=== PATIENT | male | born 1950 | race Caucasian/White ===

== ENCOUNTER 2019-09-14 17:58 | Emergency (ER) | payer MEDICARE, OTHER ==
[~2019-09-14] VITALS: Ht 172.7 cm; Wt 106.8 kg
[2019-09-14 18:58] LABS: BASOPHILS % (AUTO) 0.9 % (0.0-2.0); EOSINOPHILS % (AUTO) 1.3 % (1.0-6.0); HEMATOCRIT 43.1 % (41-53); HEMOGLOBIN 14.3 g/dL (13.5-17.5); LYMPHOCYTES % (AUTO) 20.6 % (22.0-44.0); MEAN CORPUSCULAR HEMOGLOBIN 32.3 pg (26.0-34.0); MEAN CORPUSCULAR HGB CONC 33.2 G/dL (31.0-37.0); MEAN CORPUSCULAR VOLUME 97 fL (80-100); MONOCYTES # (AUTO) 0.7 K/uL (0.1-1.0); MONOCYTES % (AUTO) 13.2 % (2.0-9.0); NEUTROPHILS # (AUTO) 3.2 K/uL (1.8-7.7); PLATELET COUNT (AUTO) 184 K/uL (150-450); RED BLOOD CELL COUNT(AUTO) 4.43 MIL/uL (4.50-5.90)
[2019-09-14 19:11] LABS: ANION GAP 11 mmol/L (8-16); CALCIUM, TOTAL 8.1 mg/dL (8.8-10.5); CARBON DIOXIDE 25 mmol/L (22-29); CHLORIDE 105 mmol/L (98-107); CREATININE 0.91 mg/dL (0.60-1.30); GLOMERULAR FILTR. RATE CALC > 60 mL/min (>60); GLUCOSE,RANDOM 103 mg/dL (70-110); POTASSIUM 4.1 mmol/L (3.5-5.1); SODIUM SERUM 141 mmol/L (136-145); UREA NITROGEN, BLOOD 11 mg/dL (7-18)
[2019-09-14 19:34] LABS: ALANINE AMINOTRANSFERASE 14 U/L (12-78); ALBUMIN 3.2 g/dL (3.4-5.0); ALKALINE PHOSPHATASE 104 U/L (46-116); ASPARTATE AMINOTRANSFERASE 21 U/L (15-37); BILIRUBIN,TOTAL 0.3 mg/dL (0.1-1.0); CREATINE KINASE, TOTAL ONLY 137 U/L (39-308); TOTAL PROTEIN, SERUM 7.6 g/dL (6.4-8.2)
[2019-09-14 19:37] LABS: B-TYPE NATRIURETIC PEPTIDE 211 pg/mL (0-100)
[2019-09-14 19:57] LABS: AMPHET/METH SCREEN,URINE NEGATIVE (NEGATIVE); BARBITURATE SCREEN, URINE NEGATIVE (NEGATIVE); BENZODIAZEPINES SCREEN,URINE NEGATIVE (NEGATIVE); CANNABINOID SCREEN,URINE NEGATIVE (NEGATIVE); COCAINE SCREEN,URINE NEGATIVE (NEGATIVE); METHADONE SCREEN, URINE NEGATIVE (NEGATIVE); OPIATE SCREEN,URINE NEGATIVE (NEGATIVE)
[2019-09-14 20:04] LABS: APPEARANCE,URINE CLEAR (CLEAR); BILIRUBIN,URINE NEGATIVE (NEGATIVE); GLUCOSE, URINE (UA) NEGATIVE (NEGATIVE); KETONES,URINE NEGATIVE (NEGATIVE); LEUKOCYTE ESTERASE ,URINE NEGATIVE (NEGATIVE); NITRATE,URINE NEGATIVE (NEGATIVE); OCCULT BLOOD,URINE NEGATIVE (NEGATIVE); PROTEIN,URINE NEGATIVE (NEGATIVE); UROBILINOGEN,URINE 0.2 mg/dL (<=1.0)
[2019-09-14 20:05] LABS: PHENCYCLIDINE SCREEN,URINE NEGATIVE (NEGATIVE)
[2019-09-14 21:45] VITALS: BP 140/90
== END 2019-09-14 21:45 | disposition home or self-care (01) ==
LOC: EMS 18:03
DX: F10.129 Alcohol abuse with intoxication, unspecified (principal); R45.851 Suicidal ideations; F17.200 Nicotine dependence, unspecified, uncomplicated; I48.91 Unspecified atrial fibrillation; I51.9 Heart disease, unspecified; Y90.6 Blood alcohol level of 120-199 mg/100 ml
CPT/HCPCS: 36415; 80053; 80307; 81003; 82550; 83880; 84484; 85025; 93005; 99284; G0480

== ENCOUNTER 2022-10-01 17:52 | Emergency (ER) | payer MEDICARE, OTHER ==
[~2022-10-01] VITALS: Ht 177.8 cm; Wt 106.8 kg
[2022-10-01 18:38] VITALS: TEMP 98.3
[2022-10-01] MEDS ORDERED: SODIUM CHLORIDE 0.9% 1,000 ML IV ONE (21:00)
[2022-10-01 21:52] LABS: BASOPHILS % (AUTO) 4.8 % (0.0-2.0); EOSINOPHILS % (AUTO) 0.3 % (1.0-6.0); HEMATOCRIT 48.4 % (41-53); HEMOGLOBIN 16.2 g/dL (13.5-17.5); LYMPHOCYTES # (AUTO) 1.2 K/uL (1.0-4.8); LYMPHOCYTES % (AUTO) 21.1 % (22.0-44.0); MEAN CORPUSCULAR HEMOGLOBIN 35.4 pg (26.0-34.0); MEAN CORPUSCULAR HGB CONC 33.5 G/dL (31.0-37.0); MEAN CORPUSCULAR VOLUME 106 fL (80-100); MONOCYTES # (AUTO) 0.8 K/uL (0.1-1.0); MONOCYTES % (AUTO) 13.1 % (2.0-9.0); NEUTROPHILS # (AUTO) 3.5 K/uL (1.8-7.7); NEUTROPHILS % (AUTO) 60.7 % (40.0-70.0); PLATELET COUNT (AUTO) 117 K/uL (150-450); RED BLOOD CELL COUNT(AUTO) 4.57 MIL/uL (4.50-5.90); RED CELL DISTRIBUTION WIDTH 16.4 % (11.5-14.5)
[2022-10-01 21:52] LABS: APPEARANCE,URINE CLEAR (CLEAR); BILIRUBIN,URINE NEGATIVE (NEGATIVE); GLUCOSE, URINE (UA) >=1000 mg/dL (NEGATIVE); LEUKOCYTE ESTERASE ,URINE NEGATIVE (NEGATIVE); NITRATE,URINE NEGATIVE (NEGATIVE); OCCULT BLOOD,URINE NEGATIVE (NEGATIVE); PROTEIN,URINE NEGATIVE (NEGATIVE); SPECIFIC GRAVITIY, URINE 1.018 (1.003-1.030); UROBILINOGEN,URINE <=1.0 mg/dL (<=1.0)
[2022-10-01 21:59] LABS: AMPHET/METH SCREEN,URINE NEGATIVE (NEGATIVE); BARBITURATE SCREEN, URINE NEGATIVE (NEGATIVE); BENZODIAZEPINES SCREEN,URINE NEGATIVE (NEGATIVE); CANNABINOID SCREEN,URINE NEGATIVE (NEGATIVE); COCAINE SCREEN,URINE NEGATIVE (NEGATIVE); METHADONE SCREEN, URINE NEGATIVE (NEGATIVE); OPIATE SCREEN,URINE NEGATIVE (NEGATIVE); PHENCYCLIDINE SCREEN,URINE NEGATIVE (NEGATIVE)
[2022-10-01 22:03] LABS: INR 1.1 (0.9-1.1); PROTHROMBIN TIME 11.1 SEC (9.4-11.6)
[2022-10-01 22:13] LABS: LACTIC ACID 3.8 mmol/L (0.4-2.0)
[2022-10-01 22:16] LABS: BACTERIA,URINE None Seen /HPF (None Seen); RBC,URINE None Seen /HPF (0-2); SQUAMOUS EPITHELIAL CELL,UR Few /LPF (None Seen); WBC,URINE None Seen /HPF (0-5)
[2022-10-01 22:31] LABS: ANION GAP 12 mmol/L (8-16); CARBON DIOXIDE 25 mmol/L (22-29); CHLORIDE 102 mmol/L (98-107); CREATININE 0.79 mg/dL (0.60-1.30); GLOMERULAR FILTR. RATE CALC > 60 mL/min (>60); GLUCOSE,RANDOM 73 mg/dL (70-110); POTASSIUM 4.1 mmol/L (3.5-5.1); SODIUM SERUM 139 mmol/L (136-145)
[2022-10-01 22:56] LABS: ALANINE AMINOTRANSFERASE 21 U/L (12-78); ALBUMIN 3.5 g/dL (3.4-5.0); ALKALINE PHOSPHATASE 73 U/L (46-116); ASPARTATE AMINOTRANSFERASE 24 U/L (15-37); BILIRUBIN,TOTAL 0.6 mg/dL (0.1-1.0); CREATINE KINASE, TOTAL ONLY 92 U/L (39-308); TOTAL PROTEIN, SERUM 7.1 g/dL (6.4-8.2)
[2022-10-02 00:27] LABS: GLUCOMETER DEV NAME(LOC) ER.6
[2022-10-02] MEDS ORDERED: CARVEDILOL 6.25 MG TABLET PO ONE (01:15)
[2022-10-02 01:56] VITALS: BP 108/59; PULSE 111; RESP 16
== END 2022-10-02 02:21 | disposition home or self-care (01) ==
LOC: EMS 17:56
DX: F10.129 Alcohol abuse with intoxication, unspecified (principal); I48.91 Unspecified atrial fibrillation; I51.9 Heart disease, unspecified
CPT/HCPCS: 99285; 96360; 71045; 96361; 80053; 82550; 82962; 83605; 84484; 85025; 85610; 85730; 93005; 81001; 36415; 80307 ×2; J7030; G0480

== ENCOUNTER 2022-10-07 12:51 | Emergency (ER) | payer MEDICARE, OTHER ==
[~2022-10-07] VITALS: Ht 177.8 cm; Wt 79.5 kg
[2022-10-07 14:23] VITALS: TEMP 97.7
[2022-10-07] MEDS ORDERED: CHOL200059 PO (15:30)
[2022-10-07] MEDS ORDERED: CARB1TAB33 PO (15:30)
[2022-10-07] MEDS ORDERED: ACET325T51 PO (15:30)
[2022-10-07] MEDS ORDERED: FOLI-130 PO (15:30)
[2022-10-07] MEDS ORDERED: EMPA10TA3 PO (15:30)
[2022-10-07] MEDS ORDERED: CETI10TA58 PO (15:30)
[2022-10-07] MEDS ORDERED: RIVA20TA PO ×2 (15:30→16:42)
[2022-10-07] MEDS ORDERED: ICOS1CAP PO (15:30)
[2022-10-07] MEDS ORDERED: METF-1211 PO (15:30)
[2022-10-07] MEDS ORDERED: ATOR20TA65 PO (15:30)
[2022-10-07] MEDS ORDERED: CARV12.530 PO (15:30)
[2022-10-07 15:33] LABS: BASOPHILS % (AUTO) 1.8 % (0.0-2.0); EOSINOPHILS % (AUTO) 0.3 % (1.0-6.0); HEMATOCRIT 48.4 % (41-53); HEMOGLOBIN 15.4 g/dL (13.5-17.5); LYMPHOCYTES # (AUTO) 0.9 K/uL (1.0-4.8); LYMPHOCYTES % (AUTO) 16.8 % (22.0-44.0); MEAN CORPUSCULAR HEMOGLOBIN 33.9 pg (26.0-34.0); MEAN CORPUSCULAR HGB CONC 31.7 G/dL (31.0-37.0); MEAN CORPUSCULAR VOLUME 107 fL (80-100); MONOCYTES # (AUTO) 0.6 K/uL (0.1-1.0); MONOCYTES % (AUTO) 11.7 % (2.0-9.0); NEUTROPHILS # (AUTO) 3.7 K/uL (1.8-7.7); NEUTROPHILS % (AUTO) 69.4 % (40.0-70.0); PLATELET COUNT (AUTO) 140 K/uL (150-450); RED BLOOD CELL COUNT(AUTO) 4.54 MIL/uL (4.50-5.90); RED CELL DISTRIBUTION WIDTH 16.9 % (11.5-14.5)
[2022-10-07 15:43] LABS: ANION GAP 15 mmol/L (8-16); CALCIUM, TOTAL 8.5 mg/dL (8.8-10.5); CARBON DIOXIDE 26 mmol/L (22-29); CHLORIDE 103 mmol/L (98-107); CREATININE 0.79 mg/dL (0.60-1.30); GLOMERULAR FILTR. RATE CALC > 60 mL/min (>60); GLUCOSE,RANDOM 85 mg/dL (70-110); POTASSIUM 4.2 mmol/L (3.5-5.1); SODIUM SERUM 144 mmol/L (136-145)
[2022-10-07 15:45] LABS: PROTHROMBIN TIME 10.7 SEC (9.4-11.6)
[2022-10-07 15:49] LABS: ALANINE AMINOTRANSFERASE 25 U/L (12-78); ALBUMIN 3.5 g/dL (3.4-5.0); ALKALINE PHOSPHATASE 74 U/L (46-116); ASPARTATE AMINOTRANSFERASE 30 U/L (15-37); BILIRUBIN,TOTAL 0.6 mg/dL (0.1-1.0); CREATINE KINASE, TOTAL ONLY 70 U/L (39-308); TOTAL PROTEIN, SERUM 7.2 g/dL (6.4-8.2)
[2022-10-07 16:02] LABS: B-TYPE NATRIURETIC PEPTIDE 96 pg/mL (0-100)
[2022-10-07 16:45] VITALS: BP 121/75; PULSE 90; RESP 16
== END 2022-10-07 17:37 | disposition home or self-care (01) ==
LOC: EMS 13:02
DX: F10.129 Alcohol abuse with intoxication, unspecified (principal); I48.91 Unspecified atrial fibrillation; I51.9 Heart disease, unspecified
CPT/HCPCS: 99285; 71045; 80053; 82550; 83880; 84484; 85025; 85610; 85730; 93005; G0480

== ENCOUNTER 2022-12-31 14:58 | Emergency (ER) | payer MEDICARE, OTHER ==
[~2022-12-31] VITALS: Ht 170.2 cm; Wt 76.4 kg
[~2022-12-31 14:58] MED LIST: ACET325T51 PO; ATOR20TA65 PO; CARB1TAB33 PO; CARV12.530 PO; CETI10TA58 PO; CHOL200059 PO; EMPA10TA3 PO; FOLI-130 PO; ICOS1CAP PO; METF-1211 PO; RIVA20TA PO
[2022-12-31 15:53] LABS: BASOPHILS % (AUTO) 1.4 % (0.0-2.0); HEMATOCRIT 42.8 % (41-53); HEMOGLOBIN 14.1 g/dL (13.5-17.5); LYMPHOCYTES # (AUTO) 1.2 K/uL (1.0-4.8); LYMPHOCYTES % (AUTO) 26.3 % (22.0-44.0); MEAN CORPUSCULAR HEMOGLOBIN 33.9 pg (26.0-34.0); MEAN CORPUSCULAR HGB CONC 32.9 G/dL (31.0-37.0); MEAN CORPUSCULAR VOLUME 103 fL (80-100); MONOCYTES # (AUTO) 0.6 K/uL (0.1-1.0); MONOCYTES % (AUTO) 13.6 % (2.0-9.0); NEUTROPHILS # (AUTO) 2.6 K/uL (1.8-7.7); NEUTROPHILS % (AUTO) 57.7 % (40.0-70.0); PLATELET COUNT (AUTO) 150 K/uL (150-450); RED BLOOD CELL COUNT(AUTO) 4.16 MIL/uL (4.50-5.90); RED CELL DISTRIBUTION WIDTH 15.2 % (11.5-14.5); WHITE BLOOD COUNT (AUTO) 4.5 K/uL (4.5-11.0)
[2022-12-31 16:01] LABS: ANION GAP 11 mmol/L (8-16); CALCIUM, TOTAL 8.3 mg/dL (8.8-10.5); CARBON DIOXIDE 25 mmol/L (22-29); CHLORIDE 105 mmol/L (98-107); CREATININE 0.55 mg/dL (0.60-1.30); GLOMERULAR FILTR. RATE CALC > 60 mL/min (>60); GLUCOSE,RANDOM 100 mg/dL (70-110); POTASSIUM 3.5 mmol/L (3.5-5.1); SODIUM SERUM 141 mmol/L (136-145); UREA NITROGEN, BLOOD 8 mg/dL (7-18)
[2022-12-31 16:07] LABS: ALANINE AMINOTRANSFERASE 12 U/L (12-78); ALKALINE PHOSPHATASE 58 U/L (46-116); ASPARTATE AMINOTRANSFERASE 10 U/L (15-37); BILIRUBIN,TOTAL 0.4 mg/dL (0.1-1.0); TOTAL PROTEIN, SERUM 6.3 g/dL (6.4-8.2)
[2022-12-31 16:10] LABS: ALCOHOL, BLOOD (SERUM) 173 mg/dL (0-10)
[2022-12-31 16:31] LABS: RBC MORPHOLOGY COMMENT ABNORMAL RBC MORPH
[2022-12-31 19:49] VITALS: TEMP 97.5
[2022-12-31 20:58] VITALS: BP 126/81; PULSE 92; RESP 16
== END 2022-12-31 21:16 | disposition home or self-care (01) ==
LOC: EMS 15:06
DX: F10.229 Alcohol dependence with intoxication, unspecified (principal); Z98.890 Other specified postprocedural states; Y90.9 Presence of alcohol in blood, level not specified
CPT/HCPCS: 99285; 70450; 80053; 85025; 36415; 93005; G0480